=== PATIENT | female | born 1970 | race Hispanic/Latino ===

== ENCOUNTER 2019-05-10 21:22 | Emergency (ER) | payer OTHER, SELFPAY ==
[2019-05-10 22:17] LABS: BASOPHILS % (AUTO) 0.4 % (0.0-5.0); HEMATOCRIT 35.2 % (36-48); MEAN CORPUSCULAR HEMOGLOBIN 29.2 pg (27.0-33.0); MEAN CORPUSCULAR HGB CONC 32.7 g/dL (32.0-36.0); MEAN CORPUSCULAR VOLUME 89.3 fL (79-99); MONOCYTES % (AUTO) 7.1 % (3.0-13.0); NEUTROPHILS % (AUTO) 53.1 % (40.0-77.0); PLATELET COUNT (AUTO) 251 K/uL (130-400); RED BLOOD CELL COUNT(AUTO) 3.94 MIL/uL (4.00-5.50); RED CELL DISTRIBUTION WIDTH 12.2 % (11.0-15.5); WHITE BLOOD COUNT (AUTO) 9.7 K/uL (4.8-10.8)
[2019-05-10 22:21] LABS: APPEARANCE,URINE Clear (CLEAR); BILIRUBIN,URINE Negative (NEGATIVE); COLOR,URINE Dark Yellow (YELLOW); GLUCOSE, URINE (UA) Negative (NEGATIVE); KETONES,URINE Negative (NEGATIVE); LEUKOCYTE ESTERASE ,URINE Negative (NEGATIVE); NITRATE,URINE Negative (NEGATIVE); OCCULT BLOOD,URINE Small (NEGATIVE); PROTEIN,URINE Negative (NEGATIVE)
[2019-05-10 22:26] LABS: CREATININE 0.7 mg/dL (0.5-1.5); POTASSIUM 3.4 mmol/L (3.5-5.1)
[2019-05-10 22:29] LABS: INR 0.98 (0.85-1.15); PARTIAL THROMBOPLASTIN TIME 27.8 SEC (26.3-35.5); PROTHROMBIN TIME 10.3 SEC (9.6-11.6)
[2019-05-10 22:29] LABS: AMPHET/METH SCREEN,URINE NEGATIVE (NEGATIVE); BARBITURATE SCREEN, URINE NEGATIVE (NEGATIVE); BENZODIAZEPINES SCREEN,URINE NEGATIVE (NEGATIVE); CANNABINOID SCREEN,URINE NEGATIVE (NEGATIVE); COCAINE SCREEN,URINE NEGATIVE (NEGATIVE); OPIATE SCREEN,URINE NEGATIVE (NEGATIVE); PHENCYCLIDINE SCREEN,URINE NEGATIVE (NEGATIVE)
[2019-05-10 22:31] LABS: BACTERIA,URINE Rare /HPF (None Seen); SQUAMOUS EPITHELIAL CELL,UR 0-2 /HPF (0-2)
[2019-05-10 22:36] LABS: ALBUMIN 3.7 g/dL (3.5-5.0); BILIRUBIN,TOTAL 0.2 mg/dL (0.2-1.0); TOTAL PROTEIN, SERUM 7.7 g/dL (6.0-8.3)
[2019-05-10] MEDS ORDERED: ONDANSETRON HCL 4 MG/2 ML VIAL ONE (23:57)
[2019-05-10] MEDS ORDERED: SODIUM CHLORIDE 0.9% 1000ML 1,000 ML IV ONE (23:58)
== END 2019-05-11 00:56 | disposition home or self-care (01) ==
LOC: EDH 21:22
DX: E86.0 Dehydration (principal); R42 Dizziness and giddiness; R11.0 Nausea; Z98.890 Other specified postprocedural states
CPT/HCPCS: 36415; 80053; 80305; 81001; 82150; 82550; 83690; 84484; 85025; 85610; 85730; 87804 ×2; 93005; 96374; 99284; J2405; J7030

== ENCOUNTER 2020-03-20 19:48 | Emergency (ER) | payer MEDICAID ==
[2020-03-20] MEDS ORDERED: IBUPROFEN 400 MG TABLET ONE (20:42)
[2020-03-20] MEDS ORDERED: CYCLOBENZAPRINE HCL 10 MG TABLET ONE (20:42)
== END 2020-03-20 20:48 | disposition home or self-care (01) ==
LOC: EDH 19:48
DX: R51.9 Headache, unspecified (principal); Z98.890 Other specified postprocedural states

== ENCOUNTER 2021-06-26 10:18 | Emergency (ER) | payer MEDICAID ==
[~2021-06-26] VITALS: Ht 149.9 cm; Wt 59.0 kg
[2021-06-26] MEDS ORDERED: KETOROLAC 60 MG VIAL (30MG/ML) IM ONE (11:30)
[2021-06-26] MEDS ORDERED: ORPHENADRINE CITRATE 30 MG/ML ML IM ONE (11:30)
[2021-06-26 13:52] VITALS: BP 127/77
[2021-06-26] MEDS ORDERED: NAPR-1180 PO (15:00)
[2021-06-26] MEDS ORDERED: CYCL-309 PO (15:00)
== END 2021-06-26 15:19 | disposition home or self-care (01) ==
LOC: EDH 10:18
DX: S29.012A Strain of muscle and tendon of back wall of thorax, initial encounter (principal); S16.1XXA Strain of muscle, fascia and tendon at neck level, initial encounter; E78.00 Pure hypercholesterolemia, unspecified; Z87.442 Personal history of urinary calculi; Z98.890 Other specified postprocedural states; V49.49XA Driver injured in collision with other motor vehicles in traffic accident, initial encounter; Y93.89 Activity, other specified; Y92.413 State road as the place of occurrence of the external cause; Y99.8 Other external cause status
CPT/HCPCS: 72072; 96372 ×2; 99284; J1885; J2360

== ENCOUNTER 2021-12-06 19:39 | Emergency (ER) | payer MEDICAID ==
[~2021-12-06] VITALS: Ht 149.9 cm; Wt 59.0 kg
[~2021-12-06 19:39] MED LIST: CYCL-309 PO; NAPR-1180 PO
[2021-12-06] MEDS ORDERED: IBUPROFEN 600 MG TABLET PO ONE ×2 (21:00)
[2021-12-06] MEDS ORDERED: 0.9%NACL 1000ML 1,000 ML IV SCH (21:00)
[2021-12-06] MEDS ORDERED: ACETAMINOPHEN 500 MG TABLET PO ONE (21:00)
[2021-12-06] MEDS ORDERED: 0.9%NACL 1000ML IV ONE (21:42)
[2021-12-06 21:43] LABS: BASOPHILS % (AUTO) 0.2 % (0.0-5.0); EOSINOPHILS % (AUTO) 1.4 % (0.0-8.0); HEMATOCRIT 35.9 % (36-48); LYMPHOCYTES % (AUTO) 7.8 % (21.0-51.0); MEAN CORPUSCULAR HEMOGLOBIN 30.3 pg (27.0-33.0); MEAN CORPUSCULAR HGB CONC 33.7 g/dL (32.0-36.0); MEAN CORPUSCULAR VOLUME 89.8 fL (79-99); MONOCYTES % (AUTO) 9.4 % (3.0-13.0); NEUTROPHILS % (AUTO) 80.8 % (40.0-77.0); PLATELET COUNT (AUTO) 244 K/uL (130-400); RED CELL DISTRIBUTION WIDTH 12.3 % (11.0-15.5); WHITE BLOOD COUNT (AUTO) 8.1 K/uL (4.8-10.8)
[2021-12-06 21:47] LABS: APPEARANCE,URINE CLEAR (CLEAR); BILIRUBIN,URINE NEGATIVE (NEGATIVE); COLOR,URINE LIGHT-YELLOW (YELLOW); GLUCOSE, URINE (UA) NEGATIVE (NEGATIVE); KETONES,URINE NEGATIVE (NEGATIVE); LEUKOCYTE ESTERASE ,URINE NEGATIVE Leu/uL (NEGATIVE); NITRATE,URINE NEGATIVE (NEGATIVE); OCCULT BLOOD,URINE SMALL (NEGATIVE); PROTEIN,URINE NEGATIVE (NEGATIVE); UROBILINOGEN,URINE 0.2 mg/dL (0.2-1.0)
[2021-12-06 21:52] LABS: BACTERIA,URINE RARE /HPF (None Seen); MUCUS,URINE FEW LPF (None Seen); SQUAMOUS EPITHELIAL CELL,UR RARE /HPF (0-2); WBC,URINE 0-1 /HPF (0-1)
[2021-12-06 21:53] LABS: CREATININE 0.7 mg/dL (0.5-1.5); POTASSIUM 3.8 mmol/L (3.5-5.1)
[2021-12-06 21:58] LABS: ALBUMIN 3.8 g/dL (3.5-5.0); CRP QUANTITATIVE 30.4 mg/L (0.00-9.0); TOTAL PROTEIN, SERUM 7.8 g/dL (6.0-8.3)
[2021-12-06] MEDS ORDERED: ACET-2247 PO (22:07)
[2021-12-06] MEDS ORDERED: IBUP-2070 PO (22:07)
[2021-12-06 22:18] VITALS: BP 139/64
== END 2021-12-06 22:24 | disposition home or self-care (01) ==
LOC: EDH 19:39
DX: J06.9 Acute upper respiratory infection, unspecified (principal); E86.0 Dehydration; R50.9 Fever, unspecified; Z20.822 Contact with and (suspected) exposure to COVID-19; Z98.890 Other specified postprocedural states; Z79.899 Other long term (current) drug therapy
CPT/HCPCS: 99283; 87635; 80053; 85025; 87880; 87804 ×2; 83605; 86140; 81001; 36415; C9803; J7030

== ENCOUNTER 2022-12-16 20:39 | Emergency (ER) | payer MEDICAID ==
[~2022-12-16] VITALS: Ht 149.9 cm; Wt 59.9 kg
[~2022-12-16 20:39] MED LIST changes: +ACET-2247 PO; +IBUP-2070 PO
[2022-12-16 20:47] VITALS: BP 126/81; PULSE 79; RESP 18
[2022-12-16 22:26] LABS: BASOPHILS # (AUTO) 0.04 K/uL (0.00-0.20); BASOPHILS % (AUTO) 0.4 % (0.0-5.0); EOSINOPHILS # (AUTO) 0.25 K/uL (0.00-0.70); EOSINOPHILS % (AUTO) 2.6 % (0.0-8.0); HEMATOCRIT 36.4 % (36-48); IMMATURE GRANULOCYTE ABSOLUTE 0.04 K/uL (0-1); LYMPHOCYTES # (AUTO) 3.6 K/uL (1.0-4.8); LYMPHOCYTES % (AUTO) 37.3 % (21.0-51.0); MEAN CORPUSCULAR HEMOGLOBIN 30.6 pg (27.0-33.0); MEAN CORPUSCULAR HGB CONC 33.2 g/dL (32.0-36.0); MEAN CORPUSCULAR VOLUME 92.2 fL (79-99); MONOCYTES # (AUTO) 0.7 K/uL (0.1-1.0); MONOCYTES % (AUTO) 7.1 % (3.0-13.0); NEUTROPHILS % (AUTO) 52.2 % (40.0-77.0); PLATELET COUNT (AUTO) 271 K/uL (130-400); RED BLOOD CELL COUNT(AUTO) 3.95 MIL/uL (4.00-5.50); RED CELL DISTRIBUTION WIDTH 12.4 % (11.0-15.5); WHITE BLOOD COUNT (AUTO) 9.7 K/uL (4.8-10.8)
[2022-12-16 22:35] LABS: CREATININE 0.6 mg/dL (0.5-1.5); POTASSIUM 3.7 mmol/L (3.5-5.1)
[2022-12-16 22:44] LABS: ALBUMIN 3.6 g/dL (3.5-5.0); BILIRUBIN,TOTAL 0.2 mg/dL (0.2-1.0); TOTAL PROTEIN, SERUM 7.4 g/dL (6.0-8.3)
[2022-12-16 22:45] LABS: INR < 0.93 (0.85-1.15); PROTHROMBIN TIME 10.5 SEC (9.6-11.6)
[2022-12-16 22:46] LABS: PARTIAL THROMBOPLASTIN TIME 31.2 SEC (26.3-35.5)
[2022-12-16] MEDS ORDERED: DIAZEPAM 5 MG/ML 2 ML SYG IVP ONE (23:00)
[2022-12-16] MEDS ORDERED: FAMOTIDINE 20MG VIAL IV ONE (23:00)
[2022-12-16] MEDS ORDERED: KETOROLAC 15MG/ML VIAL (15MG/ML) IV ONE (23:00)
[2022-12-16] MEDS ORDERED: KETOROLAC 30MG VIAL (30MG/ML) IVP ONE (23:00)
[2022-12-16 23:04] LABS: APPEARANCE,URINE CLEAR (CLEAR); BILIRUBIN,URINE NEGATIVE (NEGATIVE); COLOR,URINE LIGHT-YELLOW (YELLOW); GLUCOSE, URINE (UA) NEGATIVE (NEGATIVE); KETONES,URINE NEGATIVE (NEGATIVE); LEUKOCYTE ESTERASE ,URINE 25 Leu/uL (NEGATIVE); NITRATE,URINE NEGATIVE (NEGATIVE); OCCULT BLOOD,URINE NEGATIVE (NEGATIVE); PROTEIN,URINE NEGATIVE (NEGATIVE); UROBILINOGEN,URINE 0.2 mg/dL (0.2-1.0)
[2022-12-16 23:11] LABS: AMPHET/METH SCREEN,URINE NEGATIVE (NEGATIVE); BARBITURATE SCREEN, URINE NEGATIVE (NEGATIVE); BENZODIAZEPINES SCREEN,URINE NEGATIVE (NEGATIVE); CANNABINOID SCREEN,URINE NEGATIVE (NEGATIVE); COCAINE SCREEN,URINE NEGATIVE (NEGATIVE); OPIATE SCREEN,URINE NEGATIVE (NEGATIVE); PHENCYCLIDINE SCREEN,URINE NEGATIVE (NEGATIVE)
[2022-12-16 23:14] LABS: ADD UA MICROSCOPIC YES
[2022-12-16 23:16] LABS: BACTERIA,URINE RARE /HPF (None Seen); MUCUS,URINE RARE LPF (None Seen); SQUAMOUS EPITHELIAL CELL,UR FEW /HPF (0-2)
[2022-12-17] MEDS ORDERED: CYCL10TA16 PO (00:59)
[2022-12-17] MEDS ORDERED: MELO-106 PO (00:59)
== END 2022-12-17 01:12 | disposition home or self-care (01) ==
LOC: EDH 20:39
DX: M54.12 Radiculopathy, cervical region (principal)
CPT/HCPCS: 99285; 96374; 71045; 96375; 84484; 80053; 80305; 85025; 85610; 85730; 81001; 36415; 93005; J3360; J1885; S0028; J3490

== ENCOUNTER 2023-09-15 19:37 | Emergency (ER) | payer MEDICAID, OTHER ==
[~2023-09-15] VITALS: Ht 149.9 cm; Wt 59.9 kg
[~2023-09-15 19:37] MED LIST changes: +CYCL10TA16 PO; +MELO-106 PO
[2023-09-15 20:14] VITALS: BP 131/76; PULSE 85; RESP 18; O2SAT 97
[2023-09-15] MEDS ORDERED: METH4TAB3 PO (21:07)
[2023-09-15] MEDS ORDERED: IBUP-2070 PO (21:07)
[2023-09-15] MEDS: KETOROLAC 60 MG VIAL (30MG/ML) IM ONE (21:09)
== END 2023-09-15 21:48 | disposition home or self-care (01) ==
LOC: EDH 19:37
DX: M77.9 Enthesopathy, unspecified (principal); M25.522 Pain in left elbow; E78.00 Pure hypercholesterolemia, unspecified; Z79.899 Other long term (current) drug therapy; Z98.890 Other specified postprocedural states
CPT/HCPCS: 99283; 73080; 96372; J1885

== ENCOUNTER 2024-04-16 19:18 | Emergency (ER) | payer MEDICAID ==
[~2024-04-16] VITALS: Ht 149.9 cm; Wt 57.6 kg
[~2024-04-16 19:18] MED LIST changes: +METH4TAB3 PO
--- NOTE | 2024-04-16 19:25 | NUR ---
UA CUP PROVIDED
[2024-04-16 19:52] VITALS: BP 134/82; PULSE 70; RESP 18; TEMP 97.8; O2SAT 98
--- NOTE | 2024-04-16 19:58 | ERN ---
ED Note History of Present Illness Stated Complaint: LEFT SHOULDER PAIN Chief Complaint: Shoulder Injury/Pain Dictation: This is a 53-year-old female who presented to the emergency room with complaints of left shoulder pain that started 1 hour prior to presentation. She stated that she was helping her mother with moving things when she began experiencing the shoulder pain. Pain is very sharp but she does not have any difficulty in moving the shoulder. There is no limitation in the movement. No fall. She stated that she picked up heavy things when she was helping her mother that is when she started feeling the left shoulder pain and pectoralis minor area pain. No chest pain diaphoresis no loss of consciousness. She also had some neck pain yesterday Temperature 97.8 pulse 70 respirations 15 blood pressure 137/83 with a pulse oximetry of 97% on room air Allergies: Coded Allergies: No Known Drug Allergies (Unverified Allergy, Unknown, 05/11/19) Home Meds Active Scripts Ibuprofen (Ibuprofen) 600 Mg Tablet, 600 MG PO Q6H PRN for PAIN, #30 TAB Prov:BRENDEN SPEARS NP 09/15/23 Methylprednisolone (Medrol) 4 Mg Tab.ds.pk, 4 MG PO AD, #1 UNIT Prov:BRENDEN SPEARS NP 09/15/23 Cyclobenzaprine HCl (Flexeril) 10 Mg Tab, 10 MG PO TID for muscle sstiffness, #30 TAB 2 Refills Prov:ALIX ROWLEY Sr., MD 12/17/22 Meloxicam (Meloxicam) 7.5 Mg Tablet, 7.5 MG PO DAILY, #30 TAB 2 Refills Prov:ALIX ROWLEY Sr., MD 12/17/22 Ibuprofen (Ibuprofen) 600 Mg Tablet, 600 MG PO TID PRN for PAIN, #60 TAB Prov:DAVID CRUZ 12/06/21 Acetaminophen (Tylenol) 325 Mg Tablet, 650 MG PO Q4HPRN, #50 TAB Prov:DAVID CRUZ 12/06/21 Cyclobenzaprine HCl (Cyclobenzaprine HCl) 10 Mg Tablet, 10 MG PO TID, #15 TAB 0 Refills Prov:TIFFANIE GRACE MD 06/26/21 Naproxen (Naprosyn) 500 Mg Tablet, 500 MG PO BIDPC for 10 Days, #20 TAB 0 Refills Prov:TIFFANIE GRACE MD 06/26/21 Past Medical History Past Medical History: No Pertinent History, High Cholesterol Surgical History: Family History: Negative Social History: Negative History: Not Applicable RN Note Reviewed/Agreed w/PFSH: Yes Review of System Dictation Constitutional: Negative for fever,chills, and weight loss Eyes: Negative for injury, pain,redness, and discharge ENT: Negative for injury,pain or swelling Cardiovascular: Negative for chest pain, palpitations, and edema Respiratory: Negative for shortness of breath, cough, and wheezing, Abdomen/GI: Negative for abdominal pain, nausea, vomiting, diarrhea, and c onstipation Back: Negative for injury and pain : Negative for injury, bleeding and discharge MS/Extremity: Negative for injury and deformity left shoulder pain Skin: Negative for rash, and discoloration Neuro: Negative for headache, weakness, numbness, tingling, and seizure Psych: Negative for suicide ideation, homicidal ideation, and hallucinations Initial Vital Sign VS Vital Signs Date Time Temp Pulse Resp B/P (MAP) Pulse Ox O2 Delivery O2 Flow Rate FiO2 04/16/24 19:20 97.0 70 18 137/83 98 Room Air 04/16/24 19:52 0 21 Physical Exam Dictation General: awake, alert, NAD Head/Face: Normocephalic, atraumatic Eyes: PERRL, EOMI, vision at baseline ENT: oral cavity clear, TMs clear, no signs of infection Neck: Trachea midline, supple, no nuchal rigidity Cardiovascular: RRR, normal S1/S2, No MRGs, no JVD Respiratory: CTAB, no respiratory distress, No rales or wheezes Abdomen: Soft, non-tender, non-distended, normal bowel sounds, no guarding or rebound. Skin: Warm, dry, normal turgor, no rash MS/Extremity: Pulses equal, no cyanosis, neurovascular intact, FROM completely normal shoulder exam. Mild tenderness to palpation in the left pectoralis minor area and shoulder joint Neuro: COAx4, GCS 15, strength 5/5, CN 2-12 intact, normal cerebellar exam, normal gait, Psych: Normal behavior, mood, and affect normal Extremities-trace edema without any palpable cords, Homans sign is negative ED Course ED Course Orders Procedure Category Date Status Time 12 Lead Ekg Tracing- EKG 04/16/24 Logged Technical 19:25 Troponin I High LAB 04/16/24 In Process Sensitivity 19:25 Ketorolac PHA 04/16/24 Complete Tromethamine 15mg/Ml 20:00 Current Medications Medications (Trade) Dose Ordered Sig/[place] Route PRN Reason Start Time Stop Time Status Last Admin Dose Admin Ketorolac Tromethamine (toRADol) 15 mg ONCE ONCE IM 04/16/24 20:00 04/16/24 20:02 DC Vital Signs Date Time Temp Pulse Resp B/P (MAP) Pulse Ox O2 Delivery O2 Flow Rate FiO2 04/16/24 19:52 97.9 70 18 134/82 98 Room Air* 0 21 04/16/24 19:20 97.0 70 18 137/83 98 Room Air Medical Decision Making MDM MDM: Differential diagnosis: Rotator cuff tear, left shoulder arthritis, sprain, fracture of humerus Rationale: Tests considered and ordered secondary to shared decision making include: Previous outside records reviewed: Old ER visits. Risk of complication and/or morbidity or mortality of patient management: None Medications-Per medication reconciliation Need for hospitalization: Patient does not meet criteria for hospitalization. Need for emergency major/minor surgery: No There are no social concerns with this patient. Prescription drug management Prescriptions will include symptomatic care Patient's prior external medical records from other ER visits were reviewed by me as indicated. Prior testing and results from previous visits were reviewed. Prior tests were taken into account with medical decision making and resource utilization, independent historian/historians were used to obtain complete [facility] history. I independently interpreted the test that were performed, results were reviewed by me and considered findings on radiology if ordered. Medical management and examination interpretation discussions were had by me with other qualified healthcare professionals as indicated for the patient's care. Problem List Problem List: (1) Sprain of shoulder, left (2) Left shoulder pain DX & DISP Disposition: Discharge Departure Impression: Primary Impression: Left shoulder pain Additional Impression: Sprain of shoulder, left Condition: Stable Scripts Ibuprofen (Ibuprofen) 800 Mg Tablet 800 MG PO Q8H PRN for PAIN for 5 Days, #15 TAB 0 Refills Prov: JENNY BENJAMIN MD 04/16/24 Additional Instructions: Patient and the caregiver have been informed of all the diagnostic tests and the imaging conducted during the today's visit to the emergency room and has verbalized understanding of the results I have personally reviewed and interpreted all diagnostic exams performed here in the ER today as well as the vital signs documented by the nursing staff. The patient is now being discharged to home and should follow up with the primary care physician or the specialist as directed by the ER staff. Follow-up with primary care provider in 1 to 2 days. Take medications as directed here in the emergency room. Okay to continue home medications unless otherwise discussed during your visit in the emergency room today. Return to your nearest emergency room if symptoms worsen or if there is no improvement. Call 911 if you need immediate assistance. Take Tylenol or Motrin [id number] as needed and if no contraindications are present. Increase oral hydration. A wound culture or urine culture was ordered here in the emergency room department please follow-up with primary care provider and advise them to get repeat ports from our facility. If you had any Femi wrap/splints that were applied here, please do not remove them until you see your primary care or specialty. Referrals: LOUIE ADAMS (PCP) JENNY BENJAMIN MD Apr 16, 2024 19:58
[2024-04-16] MEDS ORDERED: IBUP-2071 PO (20:14)
[2024-04-16] MEDS: ketOROlac 15MG/ML VIAL (15MG/ML) IM ONE (20:24)
--- NOTE | 2024-04-16 20:40 | EKG ---
[facility] Test Date: 2024-04-16 Test Time: 19:31:54 Pat Name: EVELIO LE Department: ED Room: Gender: F District Representative: [id number] : 1970 Requested By: JENNY BENJAMIN Order Number: [id number] Reading MD: Dawson Miguel Measurements Intervals [place] Rate: 63 P: 51 [place]: 160 QRS: 50 QRSD: 81 T: 62 QT: 406 QTc: 414 Interpretive Statements Sinus rhythm Compared to ECG 12/16/2022 20:52:29 No significant changes Electronically Signed On 04-17-2024 12:12:13 ASSOCIATE DIRECTOR OF NURSING by Dawson Miguel Please click the below link to view image of tracing.
== END 2024-04-16 20:50 | disposition home or self-care (01) ==
LOC: EDH 19:18
DX: S43.492A Other sprain of left shoulder joint, initial encounter (principal); E78.00 Pure hypercholesterolemia, unspecified; Z79.1 Long term (current) use of non-steroidal anti-inflammatories (NSAID); Z98.890 Other specified postprocedural states; X58.XXXA Exposure to other specified factors, initial encounter; Y93.89 Activity, other specified; Y92.89 Other specified places as the place of occurrence of the external cause; Y99.8 Other external cause status
CPT/HCPCS: 99284; 84484; 96372; 93005; J1885

== ENCOUNTER 2024-07-22 13:14 | Emergency (ER) | payer MEDICAID ==
[~2024-07-22] VITALS: Ht 149.9 cm; Wt 58.1 kg
[~2024-07-22 13:14] MED LIST changes: +IBUP-2071 PO
[2024-07-22 14:42] LABS: RAPID GROUP A STREP negative (NEGATIVE)
[2024-07-22 14:52] LABS: COVID19 (SARS ANTIGEN RAPID) PRESUMPTIVE NEGATIVE (NEGATIVE); INFLUENZA TYPE A Negative For Type A (NEGATIVE); INFLUENZA TYPE B Negative For Type B (NEGATIVE)
[2024-07-22] MEDS ORDERED: CIPR7.5D7 OTIC (15:21)
--- NOTE | 2024-07-22 15:22 | ERN ---
General Chief Complaint: Flu Symptoms Stated Complaint: FLU LIKE SYMPTOMS Time Seen by MD: 13:17 History of Present Illness Allergies: Coded Allergies: No Known Drug Allergies (Unverified Allergy, Unknown, 05/11/19) Home Meds Active Scripts Ciprofloxacin HCl/Dexameth (Ciproflox-Dexameth Otic Susp) 0.3 %-0.1 % Drops.susp, 4 DROP OTIC BID for 7 Days, #7.5 ML 0 Refills Prov:VENECIA SAAVEDRA 07/22/24 Ibuprofen (Ibuprofen) 800 Mg Tablet, 800 MG PO Q8H PRN for PAIN for 5 Days, #15 TAB 0 Refills Prov:JENNY BENJAMIN MD 04/16/24 Ibuprofen (Ibuprofen) 600 Mg Tablet, 600 MG PO Q6H PRN for PAIN, #30 TAB Prov:BRENDEN SPEARS NP 09/15/23 Methylprednisolone (Medrol) 4 Mg Tab.ds.pk, 4 MG PO AD, #1 UNIT Prov:BRENDEN SPEARS NP 09/15/23 Cyclobenzaprine HCl (Flexeril) 10 Mg Tab, 10 MG PO TID for muscle sstiffness, #30 TAB 2 Refills Prov:ALIX ROWLEY Sr., MD 12/17/22 Meloxicam (Meloxicam) 7.5 Mg Tablet, 7.5 MG PO DAILY, #30 TAB 2 Refills Prov:ALIX ROWLEY Sr., MD 12/17/22 Ibuprofen (Ibuprofen) 600 Mg Tablet, 600 MG PO TID PRN for PAIN, #60 TAB Prov:DAVID CRUZ 12/06/21 Acetaminophen (Tylenol) 325 Mg Tablet, 650 MG PO Q4HPRN, #50 TAB Prov:DAVID CRUZ 12/06/21 Cyclobenzaprine HCl (Cyclobenzaprine HCl) 10 Mg Tablet, 10 MG PO TID, #15 TAB 0 Refills Prov:TIFFANIE GRACE MD 06/26/21 Naproxen (Naprosyn) 500 Mg Tablet, 500 MG PO BIDPC for 10 Days, #20 TAB 0 Refills Prov:TIFFANIE GRACE MD 06/26/21 Past Medical History Past Medical History: No Pertinent History Past Surgical History: Family History Family History: Negative Social History Social History: Negative Female( History) History: Not Applicable Results Laboratory and Microbiology Lab and Micro Result Laboratory Tests Test 07/22/24 14:08 Influenza Type A Antigen Negative For Type A Influenza Type B Antigen Negative For Type B SARS-CoV-2 Antigen (Rapid) PRESUMPTIVE NEGATIVE Group A Streptococcus Rapid negative (NEGATIVE) ED Course Orders Procedure Category Date Status Time Covid19 (Sars Antigen LAB 07/22/24 Complete Rapid) 13:18 Influenza Type A & B, LAB 07/22/24 Complete Rapid 13:18 Rapid (Group A Strep) LAB 07/22/24 Complete 13:18 Vital Signs Date Time Temp Pulse Resp B/P (MAP) Pulse Ox O2 Delivery O2 Flow Rate FiO2 07/22/24 14: 99.0 103 18 144/97 97 Room Air* 0 21 07/22/24 14:02 99.0 103 18 144/97 0 Room Air 0 DX & DISP Disposition: Discharge Departure Impression: Primary Impression: Viral illness Additional Impression: Infection of right ear Condition: Stable Scripts Ciprofloxacin HCl/Dexameth (Ciproflox-Dexameth Otic Susp) 0.3 %-0.1 % Drops.susp 4 DROP OTIC BID for 7 Days, #7.5 ML 0 Refills Prov: VENECIA SAAVEDRA 07/22/24 Additional Instructions: Discharge home. Rest. Follow up with primary care DrClint in 24 hours. Return to the ER for any acute changes or worsening symptoms. If any medications were prescribed take as directed. Okay to continue home medications unless otherwise discussed during your visit in the emergency room today. Patient was also advised to follow-up with primary care physician in 1 to 2 days for continued monitoring. Referrals: LOUIE ADAMS (PCP) I performed the substantive portion of the visit. I have reviewed and personally made and approve the management plan that is documented in the notes by myself or the EDIS. I acknowledge full responsibility for the patient's management plan. VENECIA SAAVEDRA July 22, 2024 15:22
[2024-07-22 16:33] VITALS: BP 138/84; PULSE 92; RESP 18; TEMP 98.6; O2SAT 0
== END 2024-07-22 16:35 | disposition home or self-care (01) ==
LOC: EDH 13:14
DX: B34.9 Viral infection, unspecified (principal); H66.91 Otitis media, unspecified, right ear; Z79.1 Long term (current) use of non-steroidal anti-inflammatories (NSAID); Z20.822 Contact with and (suspected) exposure to COVID-19
CPT/HCPCS: 87426; 87804; 87880; 99283

== ENCOUNTER 2024-11-21 22:37 | Emergency (ER) | payer MEDICAID ==
[~2024-11-21] VITALS: Ht 149.9 cm; Wt 56.7 kg
[~2024-11-21 22:37] MED LIST changes: +AMOX1TAB16 PO; +CIPR7.5D7 OTIC; +FLUT16H NS; +IBUP-1492 PO; -IBUP-2070 PO; +LORA10TA7 PO
--- NOTE | 2024-11-21 22:38 | NUR ---
UA CUP PROVIDED
[2024-11-21 22:57] LABS: APPEARANCE,URINE CLEAR (CLEAR); GLUCOSE, URINE (UA) NEGATIVE (NEGATIVE); LEUKOCYTE ESTERASE ,URINE NEGATIVE Leu/uL (NEGATIVE); NITRATE,URINE NEGATIVE (NEGATIVE); OCCULT BLOOD,URINE NEGATIVE (NEGATIVE)
[2024-11-21 22:59] LABS: ADD UA MICROSCOPIC NO
[2024-11-21 23:08] LABS: IMMATURE GRANULOCYTE ABSOLUTE 0.01 K/uL (0-1); NUCLEATED RED BLOOD CELLS 0.0 % (0.0-0.19); PLATELET COUNT (AUTO) 272 K/uL (130-400); RED BLOOD CELL COUNT(AUTO) 3.74 MIL/uL (4.00-5.50); RED CELL DISTRIBUTION WIDTH 12.5 % (11.0-15.5); WHITE BLOOD COUNT (AUTO) 8.4 K/uL (4.8-10.8)
[2024-11-21 23:17] LABS: CREATININE 0.7 mg/dL (0.5-1.0); GLOMERULAR FILTR. RATE CALC 104.0 mL/min (>90); GLUCOSE,RANDOM 108.0 mg/dL (70-105); SODIUM SERUM 138.0 mmol/L (136-145); UREA NITROGEN, BLOOD 15.0 mg/dL (7-18)
[2024-11-21 23:22] LABS: CREATINE KINASE, TOTAL 86.0 U/L (21-232)
[2024-11-21 23:35] VITALS: BP 134/79; PULSE 79; RESP 17; TEMP 98.2; O2SAT 98
--- NOTE | 2024-11-21 23:47 | ERN ---
General Chief Complaint: Chest Pain Stated Complaint: CHEST PAIN Time Seen by MD: 22:41 Time Seen by Midlevel: 22:41 Source: patient History of Present Illness Initial Comments Per year old female presents ER chest pain. She states her chest pain started after two pills magnesium at home. She has been taking [place] [facility] home in his concerned that this may be causing her chest pain. Denies any other symptoms at this time. She states her chest pain has resolved on arrival. Allergies: Coded Allergies: No Known Drug Allergies (Unverified Allergy, Unknown, 05/11/19) Home Meds Active Scripts Loratadine (Loratadine) 10 Mg Tablet, 1 TAB PO DAILY for allergy symptoms for 30 Days, #30 TAB 0 Refills Prov:JAIMIE VARNER MD 10/13/24 Fluticasone Propionate (Flonase Nasal [place]) 50 Mcg/Actuation [place], 2 SPRAY NS DAILY for 30 Days, #16 GM 0 Refills Prov:JAIMIE VARNER MD 10/13/24 Amoxicillin/Potassium Clav (Amox Tr-K Clv 875-125 mg Tab) 875 Mg-125 Mg Tablet, 1 TAB PO BID for 10 Days, #20 TAB 0 Refills Prov:JAIMIE VARNER MD 10/13/24 Ciprofloxacin HCl/Dexameth (Ciproflox-Dexameth Otic Susp) 0.3 %-0.1 % Drops.susp, 4 DROP OTIC BID for 7 Days, #7.5 ML 0 Refills Prov:VENECIA SAAVEDRA 07/22/24 Ibuprofen (Ibuprofen) 800 Mg Tablet, 800 MG PO Q8H PRN for PAIN for 5 Days, #15 TAB 0 Refills Prov:JENNY BENJAMIN MD 04/16/24 Ibuprofen (Ibuprofen) 600 Mg Tablet, 600 MG PO Q6H PRN for PAIN, #30 TAB Prov:BRENDEN SPEARS NP 09/15/23 Methylprednisolone (Medrol) 4 Mg Tab.ds.pk, 4 MG PO AD, #1 UNIT Prov:BRENDEN SPEARS NP 09/15/23 Cyclobenzaprine HCl (Flexeril) 10 Mg Tab, 10 MG PO TID for muscle sstiffness, #30 TAB 2 Refills Prov:ALIX ROWLEY Sr., MD 12/17/22 Meloxicam (Meloxicam) 7.5 Mg Tablet, 7.5 MG PO DAILY, #30 TAB 2 Refills Prov:ALIX ROWLEY Sr., MD 12/17/22 Ibuprofen (Ibuprofen) 600 Mg Tablet, 600 MG PO TID PRN for PAIN, #60 TAB Prov:DAVID CRUZ 12/06/21 Acetaminophen (Tylenol) 325 Mg Tablet, 650 MG PO Q4HPRN, #50 TAB Prov:DAVID CRUZ 12/06/21 Cyclobenzaprine HCl (Cyclobenzaprine HCl) 10 Mg Tablet, 10 MG PO TID, #15 TAB 0 Refills Prov:TIFFANIE GRACE MD 06/26/21 Naproxen (Naprosyn) 500 Mg Tablet, 500 MG PO BIDPC for 10 Days, #20 TAB 0 Refills Prov:TIFFANIE GRACE MD 06/26/21 Past Medical History Past Medical History: No Pertinent History Past Surgical History: Cholecystectomy, Family History Family History: Negative Social History Social History: Negative Female( History) History: Not Applicable ROS Dictation CONSTITUTIONAL: Negative except for HPI HEAD/FACE: Negative except for HPI EENT: Negative except for HPI RESPIRATORY: Negative except for HPI GASTROINTESTINAL/ABDOMINAL: Negative except for HPI GENITOURINARY: Negative except for HPI MUSCULOSKELETAL: Negative except for HPI INTEGUMENTARY: Negative except for HPI NEUROLOGICAL/PSYCH: Negative except for HPI HEMATOLOGIC/LYMPHATIC: Negative except for HPI All Systems Negative, Except as noted above. 13 point review of systems assessed and all negative except for above. Physical Exam Physical Exam Dictation Vital Signs reviewed General Appearance: Alert, oriented x 3, no acute distress, well developed, nourished. Head and Face: non-traumatic. Eyes: PERRL, pink conjunctivas, eyelid no trauma, anterior chamber with arcus senilis. Ears: Pinnas intact and no signs of trauma or erythema ear canals clear and no discharge TM no erythema Nose: No discharge, no bleeding. Oropharynx: Mouth normal, tongue pink, pharynx clear,no erythema, tonsils no exudates, no abscesses noted, mucous membrane moist Neck: Supple, non-tender, no thyromegaly, no masses, no JVD, no bruits Breast:Deferred Chest:No tenderness, no crepitus, no paradoxical movement, no retractions Lungs:Clear, well-ventilated, symmetric, no rales, no wheezing, no rhonchi, no stridor, good breath sounds bilaterally Heart: Regular rate, regular rhythm, no murmur, no gallops Vascular: no peripheral edema, Abdomen: Soft, positive bowel sounds, nondistended, no guarding, nontender, no rebound, no masses no hepatomegaly, no splenomegaly, no Simpson's sign, no hernias. Rectal: Deferred Genital: Deferred Neurological: Normal speech, motor function intact, sensory function intact Musculoskeletal: Neck nontender, full range of motion, back nontender, full range of motion, Extremities: nontender, full range of motion Skin: Color pink, dry, no turgor, no rash, no lacerations, no abrasions, no contusions. Lymphatic: Deferred Results Laboratory and Microbiology Lab and Micro Result Laboratory Tests Test 11/21/24 22:40 11/21/24 22:55 Urine Color COLORLESS (YELLOW) Urine Appearance CLEAR (CLEAR) Urine pH 6.0 (5.0-8.0) Urine Specific [place] <=1.005 (1.001-1.031) Urine Protein NEGATIVE mg/dL (NEGATIVE) Urine Glucose (UA) NEGATIVE mg/dL (NEGATIVE) Urine Ketones NEGATIVE mg/dL (NEGATIVE) Urine Occult Blood NEGATIVE (NEGATIVE) Urine Nitrate NEGATIVE (NEGATIVE) Urine Bilirubin NEGATIVE mg/dL (NEGATIVE) Urine Urobilinogen 0.2 mg/dL (0.2-1.0) Urine Leukocyte Esterase NEGATIVE [place]/uL White Blood Count 8.4 K/uL (4.8-10.8) Red Blood Count 3.74 MIL/uL (4.00-5.50) L Hemoglobin 11.4 g/dL (12.0-16.0) L Hematocrit 34.4 % (36-48) L Mean Corpuscular Volume 92.0 fL (79-99) Mean Corpuscular Hemoglobin 30.5 pg (27.0-33.0) Mean Corpuscular Hemoglobin Concent 33.1 g/dL (32.0-36.0) Red Cell Distribution Width 12.5 % (11.0-15.5) Platelet Count 272 K/uL (130-400) Mean Platelet Volume 10.4 fL (7.5-10.5) Immature Granulocyte % (Auto) 0.1 % (0-1) Neutrophils (%) (Auto) 42.0 % (40.0-77.0) Lymphocytes (%) (Auto) 47.1 % (21.0-51.0) Monocytes (%) (Auto) 7.3 % (3.0-13.0) Eosinophils (%) (Auto) 3.0 % (0.0-8.0) Basophils (%) (Auto) 0.5 % (0.0-5.0) Neutrophils # (Auto) 3.5 K/uL (1.8-7.7) Lymphocytes # (Auto) 3.9 K/uL (1.0-4.8) Monocytes # (Auto) 0.6 K/uL (0.1-1.0) Eosinophils # (Auto) 0.25 K/uL (0.00-0.70) Basophils # (Auto) 0.04 K/uL (0.00-0.20) Absolute Immature Granulocyte (auto 0.01 K/uL (0-1) Nucleated Red Blood Cells 0.0 % (0.0-0.19) Sodium Level 138 mmol/L (136-145) Potassium Level 3.5 mmol/L (3.5-5.1) Chloride Level 105 mmol/L (101-111) Carbon Dioxide Level 25 mmol/L (21-32) Blood Urea Nitrogen 15 mg/dL (7-18) Creatinine 0.7 mg/dL (0.5-1.0) Glomerular Filtration Rate Calc 104 mL/min (>90) Random Glucose 108 mg/dL (70-105) H Total Calcium 8.8 mg/dL (8.5-10.1) Magnesium Level 2.10 mg/dL (1.80-2.40) Total Creatine Kinase 86 U/L (21-232) Troponin I High Sensitivity < 4 ng/L (4-50) L Labs Reviewed?: Yes MDM MDM: Per year old female presents ER chest pain. She states her chest pain started after two pills magnesium at home. She has been taking [facility] treatment home in his concerned that this may be causing her chest pain. Denies any other symptoms at this time. She states her chest pain has resolved on arrival. On physical examination patient is in no acute distress. Initial vital signs are stable. Patient is afebrile and nontoxic appearing. EKG shows no changes. Basic labs have pain CBC shows no leukocytosis. No anemia, no thrombocytopenia. Chemistries are stable. Troponin level was negative. Chest x-ray is normal. We will discharged home. Low heart score. Differential diagnosis: Acute coronary syndrome, noncardiac chest pain, GERD There are no social concerns with this patient. Prescription drug management Prescriptions will include: None Medical management and examination interpretation discussions were had by me with other qualified healthcare professionals as indicated for the patient's care. ED Course Orders Procedure Category Date Status Time Vital Signs Per CPOE 11/21/24 Transmitted Routine 22:38 Chest 1vw RAD 11/21/24 Taken 22:38 12 Lead Ekg Tracing- EKG 11/21/24 Logged Technical 22:38 Oxygen By Nc/Pulse Ox CPOE 11/21/24 Transmitted 22:38 Maintain Iv CPOE 11/21/24 Transmitted 22:38 Iv Insertion CPOE 11/21/24 Transmitted 22:38 Cardiac Monitoring CPOE 11/21/24 Transmitted 22:38 Pulse Oximetry With CPOE 11/21/24 Transmitted Vs And Prn 22:38 Cbc With Differential LAB 11/21/24 Complete 22:38 Activity: Br W/Brp CPOE 11/21/24 Transmitted With Assist 22:38 Creatine Kinase, Total LAB 11/21/24 Complete 22:38 Troponin I High LAB 11/21/24 Complete Sensitivity 22:38 Urinalysis Profile LAB 11/21/24 Complete 22:38 Basic Metabolic Panel LAB 11/21/24 Complete 22:38 Magnesium LAB 11/21/24 Complete 22:55 Vital Signs Date Time Temp Pulse Resp B/P (MAP) Pulse Ox O2 Delivery O2 Flow Rate FiO2 11/21/24 22:38 97.5 71 18 133/78 98 Room Air DX & DISP Disposition: Discharge Departure Impression: Primary Impression: Non-cardiac chest pain Condition: Stable Additional Instructions: Your blood work today is unremarkable. Blood work shows no signs of infection. You are not anemic. Your kidney function is normal. Your electrolytes are normal. Your magnesium level was normal. Your EKG shows no evidence of a heart attack. Your cardiac enzymes are negative. At this time there is no evidence a heart attack. Your symptoms may be related to the magnesium tablets you took Follow up with primary care doctor in two days for repeat evaluation. Referrals: LOUIE ADAMS (PCP) I have reviewed the case, and I agree with, Diagnosis and Plan I performed the substantive portion of the visit. I have reviewed and personally made and approve the management plan that is documented in the note by myself or the EDIS. I acknowledge for responsibility for the patient's management plan. PAULO FAYE Nov 21, 2024 23:47
--- NOTE | 2024-11-22 00:22 | HMCIMG ---
EXAM: CR Chest, 1 view. CLINICAL HISTORY: Chest pain. COMPARISON: CR Chest. 10/13/2024. FINDINGS: The lungs show no infiltration or other acute findings. No pleural effusion or pneumothorax. The cardio mediastinal silhouette is within normal limits. No acute osseous abnormality. IMPRESSION: No acute cardiopulmonary pathology is evident. Compared to the prior study, there is no significant interval change. /[place]
--- NOTE | 2024-11-22 07:17 | EKG ---
[facility] Test Date: 2024-11-21 Test Time: 22:39:22 Pat Name: EVELIO LE Department: ED Room: Gender: F Lead Web Developer: [id number] : 1970 Requested By: JENNY BENJAMIN Order Number: [id number] Reading MD: Gordon Stone Measurements Intervals [place] Rate: 62 P: 51 [place]: 181 QRS: 54 QRSD: 78 T: 63 QT: 411 QTc: 419 Interpretive Statements Sinus rhythm Compared to ECG 10/13/2024 08:02:20 No significant changes Electronically Signed On 11-23-2024 07:24:22 CDT by Gordon Stone Please click the below link to view image of tracing.
== END 2024-11-21 23:59 | disposition home or self-care (01) ==
LOC: EDH 22:37
DX: R07.89 Other chest pain (principal); Z79.1 Long term (current) use of non-steroidal anti-inflammatories (NSAID); Z90.49 Acquired absence of other specified parts of digestive tract; Z79.899 Other long term (current) drug therapy
CPT/HCPCS: 36415; 71045; 80048; 81003; 82550; 83735; 84484; 85025; 93005; 99285

== ENCOUNTER 2025-01-20 20:37 | Emergency (ER) | payer MEDICAID ==
[~2025-01-20] VITALS: Ht 149.9 cm; Wt 58.1 kg
[2025-01-20 20:41] VITALS: BP 126/92; PULSE 68; RESP 18; TEMP 97.7
--- NOTE | 2025-01-20 20:41 | NUR ---
UA CUP PROVIDED
[2025-01-20 21:09] LABS: IMMATURE GRANULOCYTE ABSOLUTE 0.03 K/uL (0-1); NUCLEATED RED BLOOD CELLS 0.0 % (0.0-0.19); PLATELET COUNT (AUTO) 291 K/uL (130-400); RED BLOOD CELL COUNT(AUTO) 4.11 MIL/uL (4.00-5.50); RED CELL DISTRIBUTION WIDTH 12.1 % (11.0-15.5); WHITE BLOOD COUNT (AUTO) 8.9 K/uL (4.8-10.8)
[2025-01-20 21:20] LABS: CREATININE 0.6 mg/dL (0.5-1.0); GLOMERULAR FILTR. RATE CALC 108.0 mL/min (>90); GLUCOSE,RANDOM 102.0 mg/dL (70-105); SODIUM SERUM 141.0 mmol/L (136-145); UREA NITROGEN, BLOOD 13.0 mg/dL (7-18)
[2025-01-20 21:29] LABS: BAND NEUTROPHILS % (MANUAL) 5 % (0-2); EOSINOPHILS % (MANUAL) 1 % (1-6); LYMPHOCYTES % (MANUAL) 29 % (22-44); MAN.DIFF COMMENT-IMPRESSION MANUAL DIFFERENTIAL; MONOCYTES % (MANUAL) 4 % (2-9); REACTIVE LYMPHOCYTES 16 % (0-0); SEGMENTED NEUTROPHILS % 45 % (40-70)
--- NOTE | 2025-01-20 22:12 | HMCIMG ---
EXAM: CT Head Without IV contrast. CLINICAL HISTORY: Patient presents with a persistent headache. TECHNIQUE: Axial computed tomography images of the head/brain without intravenous contrast. COMPARISON: None provided. FINDINGS: BRAIN: No acute hemorrhage, mass, or acute territorial infarct. Mild bilateral periventricular and gangliocapsular chronic small vessel ischemic changes. No midline shift or extra-axial collections. VENTRICLES: No hydrocephalus. ORBITS: Unremarkable. SINUSES AND MASTOIDS: Clear paranasal sinuses and mastoid air cells. BONES: No calvarial fracture. SOFT TISSUES: Unremarkable. IMPRESSION: No acute intracranial abnormality. Mild chronic small vessel ischemic changes. /[place]
--- NOTE | 2025-01-20 23:49 | NUR ---
UA COLLECTED AND SENT
[2025-01-21 00:03] LABS: APPEARANCE,URINE CLEAR (CLEAR); GLUCOSE, URINE (UA) NEGATIVE (NEGATIVE); LEUKOCYTE ESTERASE ,URINE NEGATIVE Leu/uL (NEGATIVE); NITRATE,URINE NEGATIVE (NEGATIVE); OCCULT BLOOD,URINE NEGATIVE (NEGATIVE)
[2025-01-21 00:04] LABS: ADD UA MICROSCOPIC YES
[2025-01-21] MEDS ORDERED: KETO10TA2 PO (00:22)
--- NOTE | 2025-01-21 00:23 | ERN ---
General Chief Complaint: Headache Stated Complaint: HEADACHE Time Seen by MD: 20:45 Time Seen by Midlevel: 20:45 Source: patient History of Present Illness Initial Comments 54-year-old female presents to the emergency department complaining of a headache to the frontal/parietal area that started three days ago. Denies any fever, chills, nausea, vomiting, diarrhea, vision changes, neck pain, or any other symptoms at this time. Allergies: Coded Allergies: No Known Drug Allergies (Unverified Allergy, Unknown, 05/11/19) Home Meds Active Scripts Loratadine (Loratadine) 10 Mg Tablet, 1 TAB PO DAILY for allergy symptoms for 30 Days, #30 TAB 0 Refills Prov:JAIMIE VARNER MD 10/13/24 Fluticasone Propionate (Flonase Nasal [place]) 50 Mcg/Actuation [place], 2 SPRAY NS DAILY for 30 Days, #16 GM 0 Refills Prov:JAIMIE VARNER MD 10/13/24 Amoxicillin/Potassium Clav (Amox Tr-K Clv 875-125 mg Tab) 875 Mg-125 Mg Tablet, 1 TAB PO BID for 10 Days, #20 TAB 0 Refills Prov:JAIMIE VARNER MD 10/13/24 Ciprofloxacin HCl/Dexameth (Ciproflox-Dexameth Otic Susp) 0.3 %-0.1 % Drops.susp, 4 DROP OTIC BID for 7 Days, #7.5 ML 0 Refills Prov:VENECIA SAAVEDRA 07/22/24 Ibuprofen (Ibuprofen) 800 Mg Tablet, 800 MG PO Q8H PRN for PAIN for 5 Days, #15 TAB 0 Refills Prov:JENNY BENJAMIN MD 04/16/24 Ibuprofen (Ibuprofen) 600 Mg Tablet, 600 MG PO Q6H PRN for PAIN, #30 TAB Prov:BRENDEN SPEARSP 09/15/23 Methylprednisolone (Medrol) 4 Mg Tab.ds.pk, 4 MG PO AD, #1 UNIT Prov:BRENDEN SPEARSP 09/15/23 Cyclobenzaprine HCl (Flexeril) 10 Mg Tab, 10 MG PO TID for muscle sstiffness, #30 TAB 2 Refills Prov:ALIX ROWLEY Sr., MD 12/17/22 Meloxicam (Meloxicam) 7.5 Mg Tablet, 7.5 MG PO DAILY, #30 TAB 2 Refills Prov:ALIX ROWLEY Sr., MD 12/17/22 Ibuprofen (Ibuprofen) 600 Mg Tablet, 600 MG PO TID PRN for PAIN, #60 TAB Prov:DAVID CRUZ 12/06/21 Acetaminophen (Tylenol) 325 Mg Tablet, 650 MG PO Q4HPRN, #50 TAB Prov:DAVID CRUZ 12/06/21 Cyclobenzaprine HCl (Cyclobenzaprine HCl) 10 Mg Tablet, 10 MG PO TID, #15 TAB 0 Refills Prov:TIFFANIE GRACE MD 06/26/21 Naproxen (Naprosyn) 500 Mg Tablet, 500 MG PO BIDPC for 10 Days, #20 TAB 0 Refills Prov:TIFFANIE GRACE MD 06/26/21 Past Medical History Past Medical History: No Pertinent History Past Surgical History: Cholecystectomy, Family History Family History: Negative Social History Social History: Negative Female( History) History: Not Applicable ROS Dictation CONSTITUTIONAL: Negative except for HPI HEAD/FACE: Negative except for HPI EENT: Negative except for HPI RESPIRATORY: Negative except for HPI GASTROINTESTINAL/ABDOMINAL: Negative except for HPI GENITOURINARY: Negative except for HPI MUSCULOSKELETAL: Negative except for HPI INTEGUMENTARY: Negative except for HPI NEUROLOGICAL/PSYCH: Negative except for HPI HEMATOLOGIC/LYMPHATIC: Negative except for HPI All Systems Negative, Except as noted above. 13 point review of systems assessed and all negative except for above. Physical Exam Physical Exam Dictation Vital Signs reviewed General Appearance: Alert, oriented x 3, no acute distress, well developed, nourished. Head and Face: non-traumatic. Eyes: PERRL, pink conjunctivas, eyelid no trauma, anterior chamber with arcus senilis. Ears: Pinnas intact and no signs of trauma or erythema ear canals clear and no discharge TM no erythema Nose: No discharge, no bleeding. Oropharynx: Mouth normal, tongue pink, pharynx clear,no erythema, tonsils no exudates, no abscesses noted, mucous membrane moist Neck: Supple, non-tender, no thyromegaly, no masses, no JVD, no bruits Breast:Deferred Chest:No tenderness, no crepitus, no paradoxical movement, no retractions Lungs:Clear, well-ventilated, symmetric, no rales, no wheezing, no rhonchi, no stridor, good breath sounds bilaterally Heart: Regular rate, regular rhythm, no murmur, no gallops Vascular: no peripheral edema, Abdomen: Soft, positive bowel sounds, nondistended, no guarding, nontender, no rebound, no masses no hepatomegaly, no splenomegaly, no Simpson's sign, no hernias. Rectal: Deferred Genital: Deferred Neurological: Normal speech, motor function intact, sensory function intact Musculoskeletal: Neck nontender, full range of motion, back nontender, full range of motion, Extremities: nontender, full range of motion Skin: Color pink, dry, no turgor, no rash, no lacerations, no abrasions, no contusions. Lymphatic: Deferred Results Laboratory and Microbiology Lab and Micro Result Laboratory Tests Test 01/20/25 21:02 01/20/25 23:52 White Blood Count 8.9 K/uL (4.8-10.8) Red Blood Count 4.11 MIL/uL (4.00-5.50) Hemoglobin 12.3 g/dL (12.0-16.0) Hematocrit 37.0 % (36-48) Mean Corpuscular Volume 90.0 fL (79-99) Mean Corpuscular Hemoglobin 29.9 pg (27.0-33.0) Mean Corpuscular Hemoglobin Concent 33.2 g/dL (32.0-36.0) Red Cell Distribution Width 12.1 % (11.0-15.5) Platelet Count 291 K/uL (130-400) Mean Platelet Volume 9.9 fL (7.5-10.5) Immature Granulocyte % (Auto) 0.3 % (0-1) Neutrophils (%) (Auto) 41.9 % (40.0-77.0) Lymphocytes (%) (Auto) 46.8 % (21.0-51.0) Monocytes (%) (Auto) 8.3 % (3.0-13.0) Eosinophils (%) (Auto) 2.4 % (0.0-8.0) Basophils (%) (Auto) 0.3 % (0.0-5.0) Neutrophils # (Auto) 3.7 K/uL (1.8-7.7) Lymphocytes # (Auto) 4.2 K/uL (1.0-4.8) Monocytes # (Auto) 0.7 K/uL (0.1-1.0) Eosinophils # (Auto) 0.21 K/uL (0.00-0.70) Basophils # (Auto) 0.03 K/uL (0.00-0.20) Absolute Immature Granulocyte (auto 0.03 K/uL (0-1) Segmented Neutrophils % 45 % (40-70) Band Neutrophils % 5 % (0-2) H Lymphocytes % (Manual) 29 % (22-44) Monocytes % (Manual) 4 % (2-9) Eosinophils % (Manual) 1 % (1-6) Nucleated Red Blood Cells 0.0 % (0.0-0.19) Differential Comment MANUAL DIFFERENTIAL Reactive Lymphocytes 16 % (0-0) H White Cell Morphology Comment Platelet Morphology Comment Red Blood Cell Morphology See comments Sodium Level 141 mmol/L (136-145) Potassium Level 4.2 mmol/L (3.5-5.1) Chloride Level 105 mmol/L (101-111) Carbon Dioxide Level 28 mmol/L (21-32) Blood Urea Nitrogen 13 mg/dL (7-18) Creatinine 0.6 mg/dL (0.5-1.0) Glomerular Filtration Rate Calc 108 mL/min (>90) Random Glucose 102 mg/dL (70-105) Total Calcium 9.1 mg/dL (8.5-10.1) Urine Color COLORLESS (YELLOW) Urine Appearance CLEAR (CLEAR) Urine pH 6.0 (5.0-8.0) Urine Specific [place] 1.004 (1.001-1.031) Urine Protein NEGATIVE mg/dL (NEGATIVE) Urine Glucose (UA) NEGATIVE mg/dL (NEGATIVE) Urine Ketones NEGATIVE mg/dL (NEGATIVE) Urine Occult Blood NEGATIVE (NEGATIVE) Urine Nitrate NEGATIVE (NEGATIVE) Urine Bilirubin NEGATIVE mg/dL (NEGATIVE) Urine Urobilinogen 0.2 mg/dL (0.2-1.0) Urine Leukocyte Esterase NEGATIVE Macey/uL Urine RBC 0-1 /HPF (0-1) Urine WBC 0-1 /HPF (0-1) Urine Bacteria RARE /HPF (None Seen) Labs Reviewed?: Yes MDM MDM: Differential diagnosis: Migraine like headache, tension headache, cluster headache There are no social concerns with this patient. Prescription drug management Prescriptions will include: Toradol Medical management and examination interpretation discussions were had by me with other qualified healthcare professionals as indicated for the patient's care. ED Course Orders Procedure Category Date Status Time Cbc With Differential LAB 01/20/25 In Process 20:52 Basic Metabolic Panel LAB 01/20/25 Complete 20:52 Ct Head/Brain W/O CT 01/20/25 Resulted Contrast 20:52 Ketorolac PHA 01/20/25 Complete Tromethamine 15mg/Ml 21:00 Manual Differential LAB 01/20/25 In Process 21:02 Urinalysis Profile LAB 01/20/25 Complete 23:49 Ketorolac PHA 01/21/25 Complete Tromethamine 30mg/Ml 00:00 Diphenhydramine Hcl PHA 01/21/25 Complete (Benadryl Inj) 00:00 Current Medications Medications (Trade) Dose Ordered Sig/[place] Route PRN Reason Start Time Stop Time Status Last Admin Dose Admin Diphenhydramine HCl (BENAdryl INJ) 25 mg ONCE ONCE IM 01/21/25 00:00 01/21/25 00:01 DC Ketorolac Tromethamine (toRADol) 15 mg ONCE ONCE IV 01/20/25 21:00 01/20/25 23:51 DC Ketorolac Tromethamine (toRADol) 30 mg ONCE ONCE IM 01/21/25 00:00 01/21/25 00:01 DC Vital Signs Date Time Temp Pulse Resp B/P (MAP) Pulse Ox O2 Delivery O2 Flow Rate FiO2 01/20/25 20:41 97.7 68 18 126/92 100 Room Air DX & DISP Disposition: Discharge Departure Impression: Primary Impression: Tension headache Condition: Stable Scripts Ketorolac Tromethamine (Ketorolac Tromethamine) 10 Mg Tablet 1 TAB PO BID for pain for 5 Days, #10 TAB 0 Refills Prov: PAULO FAYE PAC 01/21/25 Referrals: LOUIE ADAMS (PCP) Time of Disposition: 00:21 I have reviewed the case, and I agree with, Diagnosis and Plan I performed the substantive portion of the visit. I have reviewed and personally made and approve the management plan that is documented in the note by myself or the EDIS. I acknowledge for responsibility for the patient's management plan. PAULO FAYE PAC Jan 21, 2025 00:22
--- NOTE | 2025-01-21 00:51 | NUR ---
PT PENDING MEDICATION, STATES SHE NO LONGER WISHES TO WAIT. LEFT PRIOR TO AMA SIGNING
== END 2025-01-21 00:52 | disposition left against medical advice (07) ==
LOC: EDH 20:37
DX: G44.209 Tension-type headache, unspecified, not intractable (principal); Z79.1 Long term (current) use of non-steroidal anti-inflammatories (NSAID); Z90.49 Acquired absence of other specified parts of digestive tract; Z98.890 Other specified postprocedural states
CPT/HCPCS: 36415; 70450; 80048; 81001; 85025; 99284